=== PATIENT | male | born 1985 | race Caucasian/White ===

== ENCOUNTER 2020-03-19 18:31 | Observation (INO) | payer OTHER ==
[~2020-03-19] VITALS: Ht 172.7 cm; Wt 96.2 kg
--- NOTE | ~2020-03-19 | CON ---
[address] [address] CONSULTATION Name: COURTNEY VARGAS Room: [address] Mariam#: [id number] Admission: 03/19/20 Attend Phys: Zac Centeno MD Discharge: Date of : 85 Report #: [id number] THIS REPORT FOR: //name// cc: [facility] - [facility] physician unknown [facility] - Clinic physician unknown ~ THIS REPORT FOR: //name// CC: Zac Centeno [facility] unknown DATE OF SERVICE: 03/20/2020 HISTORY OF PRESENT ILLNESS: This is a 34-year-old male patient who was evaluated by me for spells. The description is well summarized in the patient's admission history and physical examination and will not be repeated here. He pretty much told me the same thing. History came in piecemeal fashion, but he has seen a psychiatrist for a long period of time. He has seen them. He was seeing another psychiatrist few years ago and then he started seeing another psychiatrist, in between family doctor has managed him. His 14-point review of systems was carried out and appears unremarkable for the psychiatric issues. PAST MEDICAL HISTORY: Positive for anxiety. FAMILY HISTORY: Also positive for anxiety, although the siblings do not have any problems. SOCIAL HISTORY: He smokes. 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 PHYSICAL EXAMINATION: Indicate he is alert, responsive, able to follow simple and complex commands. His cranial nerve examination appears unremarkable. His cardiac and respiratory examinations appear unremarkable. His neuromuscular examination is unremarkable. Blood pressure is 132/76, respirations 20, pulse is 96, temperature is 97.8. LABORATORY DATA: White count is normal. He had a CT scan, which was unremarkable. His cardiac and respiratory examination is unremarkable. IMPRESSION: This patient's symptoms are most likely psychiatric in origin. I think he did not have any EEG or MRI and will be desirable to do it to exclude any etiology and I ordered that. We need to await the psychiatric consults as well as the rest of the workup and he may need a consultation with an epileptologist and maybe a transfer for a video monitored EEG to another place. His driving status will be decided on the basis of those testing, [place] [address] CONSULTATION Name: COURTNEY VARGAS Room: [address] Mariam#: [id number] Admission: 03/19/20 Attend Phys: Zac Centeno MD Discharge: Date of : 85 Report #: [id number] indications, it looks like the symptoms are psychiatric and we will see what the psychiatrist's impression is and what kind of restriction he wants to put in. I think he probably should go to an epileptologist either at [facility] or because the question of pseudoseizure and the restrictions are complicated, but initially we will see what the workup shows here. I have scheduled an MRI. I have scheduled an EEG. I did order a TSH on him to make sure there is no pathology there. Psychiatric consult is already requested and we will see what they say. Dr. Anderson will follow up this patient with you from tomorrow. Thank you very much. By: 1352 1700Song Boyle MD /nt
--- NOTE | ~2020-03-19 | EEG ---
[address] [address] EEG STUDY REPORT Name: COURTNEY VARGAS Room: [address] Mariam#: [id number] Admission: 03/19/20 Attend Phys: Zac Centeno MD Discharge: 03/20/20 Date of : 85 Report #: [id number] THIS REPORT FOR: //name// CC: Zac Centeno [facility] unknown DATE OF SERVICE: 03/19/2020 This patient is being evaluated for the possibility of seizure. EEG was done by placing the electrode by standard 10-20 system of electrode placement. Both referential and sequential montages were used for recording. Background activity in this patient's EEG is about 11 Hz and 40 microvolt. The patient became drowsy that is associated with bilateral slowing and vertex sharp waves. Photic stimulation is unremarkable. Throughout the record, no active epileptiform activity was noticed. IMPRESSION: This patient's EEG is unremarkable. Thank you very much for this referral. By: [id number] 1542Pevan Boyle MD /nt
[2020-03-19 18:42] VITALS: BP 143/91
[2020-03-19] MEDS ORDERED: DILTIAZEM ER180 M2 PO (18:45)
[2020-03-19] MEDS ORDERED: ALPRAZOLAM XR3 MG PO (18:46)
[2020-03-19 19:14] LABS: ABSOLUTE BASOPHILS 0.1 thou/uL (0.0-0.2); ABSOLUTE EOSINOPHILS 0.1 thou/uL (0.0-0.7); ABSOLUTE LYMPHOCYTES 2.6 thou/uL (0.8-5.3); ABSOLUTE MONOCYTES 0.9 thou/uL (0.0-1.2); ABSOLUTE NEUTROPHILS 6.3 thou/uL (1.6-8.1); BASOPHILS 0.9 %; EOSINOPHILS 0.9 %; HEMATOCRIT 45.4 % (42.0-52.0); HEMOGLOBIN 16.2 gm/dL (14.0-18.0); LYMPHOCYTES 26.5 %; MCH 31.4 pg (26.0-34.0); MCHC 35.6 g/dL (28.0-37.0); MCV 88.2 fL (80.0-100.0); MONOCYTES 8.8 %; MPV 8.3 fl. (7.2-11.1); NUCLEATED RBCS 0 /100WBC; PLATELET COUNT* 287 thou/uL (150-400); POLYS 62.9 %; RBC 5.15 mil/uL (4.50-6.00); RDW-CV 13.4 % (10.5-14.5)
[2020-03-19 19:24] LABS: CALCIUM 8.4 mg/dL (8.5-10.1); CREATININE 1.3 mg/dL (0.6-1.3); POTASSIUM 4.2 mmol/L (3.5-5.1)
[2020-03-19 19:45] LABS: ALCOHOL < 10 mg/dL (<10); VALPROIC ACID (DEPAKENE) 3.4 mcg/mL (50-100)
[2020-03-19 20:13] LABS: ALBUMIN 4.2 g/dL (3.4-5.0); TOTAL BILIRUBIN 0.4 mg/dL (<0.1-1.0); TOTAL PROTEIN 6.8 g/dL (6.4-8.2)
[2020-03-19 22:02] LABS: AMP/METHAMP Negative (Negative); BARBITURATES Negative (Negative); BENZODIAZEPINES POSITIVE (Negative); COCAINE Negative (Negative); METHADONE Negative (Negative); OPIATES Negative (Negative); PCP Negative (Negative); THC Negative (Negative)
[2020-03-20] VITALS: BP 129/91
[2020-03-20 04:00] VITALS: BP 113/53
[2020-03-20 07:36] VITALS: BP 125/80
[2020-03-20 12:19] VITALS: BP 132/76
--- NOTE | 2020-03-20 14:31 | EKG ---
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
[2020-03-20 15:16] VITALS: BP 132/76
[2020-03-20 16:00] VITALS: BP 119/75
[2020-03-20] MEDS ORDERED: EFFEXOR XR75 MG PO (20:36)
== END 2020-03-20 20:40 | disposition left against medical advice (07) ==
LOC: M.ERS 18:31 → M.TBA-ER 19:58 → M.2W 03-20 15:40
PROVIDERS: Family Medicine; ADMIT Internal Medicine; ATTEND Internal Medicine
DX: R56.9 Unspecified convulsions (principal); F41.9 Anxiety disorder, unspecified; F32.9 Major depressive disorder, single episode, unspecified; F41.0 Panic disorder [episodic paroxysmal anxiety]; F22 Delusional disorders; F17.210 Nicotine dependence, cigarettes, uncomplicated; Z79.899 Other long term (current) drug therapy

== ENCOUNTER 2020-03-24 13:32 | Emergency (ER) | payer OTHER ==
[~2020-03-24] VITALS: Ht 172.7 cm; Wt 93.0 kg
[~2020-03-24 13:32] MED LIST: ALPRAZOLAM XR3 MG PO; DILTIAZEM ER180 M2 PO; EFFEXOR XR75 MG PO
[2020-03-24 14:01] LABS: ABSOLUTE BASOPHILS 0.1 thou/uL (0.0-0.2); ABSOLUTE LYMPHOCYTES 2.7 thou/uL (0.8-5.3); ABSOLUTE MONOCYTES 0.6 thou/uL (0.0-1.2); ABSOLUTE NEUTROPHILS 7.4 thou/uL (1.6-8.1); BASOPHILS 0.9 %; EOSINOPHILS 0.2 %; HEMATOCRIT 46.3 % (42.0-52.0); HEMOGLOBIN 16.4 gm/dL (14.0-18.0); MCH 30.8 pg (26.0-34.0); MCHC 35.4 g/dL (28.0-37.0); MCV 87.1 fL (80.0-100.0); MONOCYTES 5.5 %; NUCLEATED RBCS 0 /100WBC; PLATELET COUNT* 306 thou/uL (150-400); POLYS 68.4 %; RBC 5.32 mil/uL (4.50-6.00); RDW-CV 13.6 % (10.5-14.5); WBC 10.9 thou/uL (4.0-11.0)
[2020-03-24 14:10] LABS: CALCIUM 8.6 mg/dL (8.5-10.1); CREATININE 1.4 mg/dL (0.6-1.3); POTASSIUM 3.2 mmol/L (3.5-5.1)
[2020-03-24 14:15] LABS: ALBUMIN 4.1 g/dL (3.4-5.0); TOTAL BILIRUBIN 0.5 mg/dL (<0.1-1.0); TOTAL PROTEIN 7.8 g/dL (6.4-8.2)
[2020-03-24 14:54] LABS: URINE BILIRUBIN NEGATIVE (Negative); URINE BLOOD NEGATIVE (Negative); URINE CLARITY CLEAR; URINE COLOR YELLOW; URINE GLUCOSE-RANDOM NEGATIVE (Negative); URINE KETONES NEGATIVE (Negative); URINE LEUKOCYTES-REFLEX NEGATIVE (Negative); URINE NITRITE-REFLEX NEGATIVE (Negative); URINE PROTEIN NEGATIVE (Negative); URINE SPECIFIC GRAVITY <= 1.005 (1.005-1.030); URINE UROBILINOGEN 0.2 E.U./dl (0.2-1.0)
[2020-03-24 15:02] LABS: AMP/METHAMP Negative (Negative); BARBITURATES Negative (Negative); BENZODIAZEPINES Negative (Negative); COCAINE Negative (Negative); METHADONE Negative (Negative); OPIATES Negative (Negative); PCP Negative (Negative); THC Negative (Negative)
[2020-03-24 16:27] VITALS: BP 115/61
--- NOTE | 2020-03-25 16:22 | EKG ---
[place] [address] ELECTROCARDIOGRAM REPORT Name: COURTNEY VARGAS Room: [facility]#: [id number] Admission: 03/24/20 Attend Phys: Discharge: 03/24/20 Date of : 85 Date of Service: 03/24/20 1401 Report #: [id number] THIS REPORT FOR: //name// [facility] ED Test Date: 2020-03-24 Test Time: 14:01:29 Pat Name: COURTNEY VARGAS Department: Room: Gender: Supervisor Speech: SHARIF : 1985 Requested By: Anibal Pierre Order Number: [id number] MD: Quintin Shaw Measurements Intervals [place] Rate: 111 P: 52 UT: 190 QRS: 49 QRSD: 86 T: -27 QT: 316 QTc: 430 Interpretive Statements Sinus tachycardia Borderline T abnormalities, inferior leads Baseline wander in lead(s) V1 Compared to ECG 03/19/2020 18:49:27 T-wave abnormality now present Electronically Signed On 03-25-2020 16:22:30 CDT by Quintin Shaw [email or web address] <ELECTRONICALLY SIGNED> By: Quintin Shaw MD, [facility] 03/25/20 1622 1401 1401 Quintin Shaw MD, [facility] /EPI
== END 2020-03-24 16:28 | disposition home or self-care (01) ==
LOC: M.ERS 13:32
PROVIDERS: Emergency Medicine Emergency Medical Services
DX: R41.0 Disorientation, unspecified (principal); R53.1 Weakness; Z79.899 Other long term (current) drug therapy

== ENCOUNTER 2021-09-06 11:14 | Emergency (ER) | payer OTHER ==
[~2021-09-06] VITALS: Ht 172.7 cm; Wt 97.5 kg
[2021-09-06] MEDS ORDERED: AMOXICILLIN 50500 MG PO (11:31)
[2021-09-06 11:47] LABS: ABSOLUTE BASOPHILS 0.1 thou/uL (0.0-0.2); ABSOLUTE EOSINOPHILS 0.1 thou/uL (0.0-0.7); ABSOLUTE LYMPHOCYTES 1.1 thou/uL (0.8-5.3); BASOPHILS 0.7 %; EOSINOPHILS 0.9 %; HEMATOCRIT 46.6 % (42.0-52.0); HEMOGLOBIN 15.9 gm/dL (14.0-18.0); LYMPHOCYTES 8.2 %; MCH 29.8 pg (26.0-34.0); MCV 87.5 fL (80.0-100.0); MONOCYTES 7.7 %; MPV 7.9 fl. (7.2-11.1); NUCLEATED RBCS 0 /100WBC; PLATELET COUNT* 264 thou/uL (150-400); POLYS 82.5 %; RBC 5.32 mil/uL (4.50-6.00); RDW-CV 12.6 % (10.5-14.5); WBC 13.3 thou/uL (4.0-11.0)
[2021-09-06 11:50] LABS: CALCIUM 8.8 mg/dL (8.5-10.1); CREATININE 1.3 mg/dL (0.6-1.3); POTASSIUM 3.9 mmol/L (3.5-5.1)
[2021-09-06 11:55] LABS: TOTAL BILIRUBIN 0.5 mg/dL (<0.1-1.0)
[2021-09-06 12:22] LABS: LIPASE 137 U/L (73-393)
[2021-09-06 12:25] LABS: ACETAMINOPHEN < 2 ug/mL (10-30); ALCOHOL < 10 mg/dL (<10); SALICYLATE < 2.8 mg/dL (2.8-20.0)
[2021-09-06 12:58] LABS: URINE BILIRUBIN NEGATIVE (Negative); URINE BLOOD 1+ (Negative); URINE CLARITY CLEAR; URINE COLOR YELLOW; URINE GLUCOSE-RANDOM NEGATIVE (Negative); URINE KETONES NEGATIVE (Negative); URINE LEUKOCYTES-REFLEX NEGATIVE (Negative); URINE NITRITE-REFLEX NEGATIVE (Negative); URINE PROTEIN NEGATIVE (Negative); URINE SPECIFIC GRAVITY <= 1.005 (1.005-1.030); URINE UROBILINOGEN 0.2 E.U./dl (0.2-1.0)
[2021-09-06 13:00] LABS: BACTERIA-REFLEX None Seen /HPF (None Seen); CASTS None Seen /LPF (None Seen); CRYSTALS None Seen /LPF (None Seen); SQUAMOUS 0-3 Few /LPF (0-3); URINE RBC 0-2 Rare /HPF (0-2); URINE WBC-REFLEX 0-5 Rare /HPF (0-5)
[2021-09-06 13:05] LABS: AMP/METHAMP Negative (Negative); BARBITURATES Negative (Negative); BENZODIAZEPINES Negative (Negative); COCAINE Negative (Negative); METHADONE Negative (Negative); OPIATES Negative (Negative); PCP Negative (Negative); THC Negative (Negative)
[2021-09-06 13:24] VITALS: BP 143/97
--- NOTE | 2021-09-07 12:36 | EKG ---
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: : 1985 Requested By: Susan Adams Order Number: [id number] MD: Bryan Severino Measurements Intervals [place] Rate: 106 P: 68 AR: 156 QRS: 93 QRSD: 73 T: -1 QT: 312 QTc: 415 Interpretive Statements Sinus tachycardia Borderline right axis deviation Borderline T wave abnormalities Compared to ECG 03/24/2020 14:01:29 No significant changes Electronically Signed On 09-07-2021 12:36:20 DIGITAL PRE PRESS OPERATOR by Bryan Severino [email or web address] <ELECTRONICALLY SIGNED> By: Bryan Severino MD, [facility] 09/07/21 1236 1150 1150 Bryan Severino MD, [facility] /EPI
== END 2021-09-06 13:25 | disposition home or self-care (01) ==
LOC: M.ERS 11:14
PROVIDERS: Student in an Organized Health Care Education/Training Program
DX: R07.89 Other chest pain (principal); F41.9 Anxiety disorder, unspecified; R11.2 Nausea with vomiting, unspecified; R06.02 Shortness of breath; R44.1 Visual hallucinations; R19.7 Diarrhea, unspecified; Z79.899 Other long term (current) drug therapy; Z79.2 Long term (current) use of antibiotics